=== PATIENT | female | born 2000 | race Caucasian/White ===

== ENCOUNTER 2022-06-05 18:34 | Emergency (ER) | payer OTHER ==
[2022-06-05 18:40] VITALS: BP 135/81
[2022-06-05 19:00] VITALS: BP 135/91
[2022-06-05 19:39] LABS: URINE BILIRUBIN - DIPSTICK NEGATIVE (NEGATIVE); URINE BLOOD DIPSTICK TRACE-INTACT (NEGATIVE); URINE COLOR YELLOW; URINE GLUCOSE - DIPSTICK NEGATIVE (NEGATIVE); URINE KETONE NEGATIVE (NEGATIVE); URINE LEUK ESTERASE NEGATIVE (NEGATIVE); URINE PH 6.5 (4.5-8.0); URINE PROTEIN - DIPSTICK NEGATIVE (NEG-TRACE); URINE SPECIFIC GRAVITY 1.015; URINE UROBILINOGEN - DIPSTICK 0.2 E.U./dL (0.2)
[2022-06-05 19:40] LABS: URINE NITRITE - DIPSTICK NEGATIVE (Negative)
[2022-06-05 20:00] VITALS: BP 120/84
[2022-06-05 20:30] VITALS: BP 111/74
[2022-06-05 21:00] VITALS: BP 121/63
[2022-06-05] MEDS ORDERED: NAPROXEN500 MG PO (21:32)
[2022-06-05] MEDS ORDERED: METHOCARBAMOL500 MG PO (21:32)
[2022-06-05 21:38] VITALS: BP 121/63
== END 2022-06-05 21:45 | disposition home or self-care (01) | DRG 552 ==
LOC: ED 18:34
PROVIDERS: Nurse Practitioner
DX: S16.1XXA Strain of muscle, fascia and tendon at neck level, initial encounter (principal); V43.63XA Car passenger injured in collision with pick-up truck in traffic accident, initial encounter